=== PATIENT | female | born 1960 | race Caucasian/White ===

== ENCOUNTER 2017-03-01 08:27 | Emergency (ER) | payer OTHER ==
[~2017-03-01] VITALS: Ht 167.6 cm; Wt 68.0 kg
[~2017-03-01 08:27] MED LIST: CITA-77; CLON1TAB72 OR; GABA-494 OR
[2017-03-01] MEDS ORDERED: SODIUM CHLORIDE 0.9% 1,000 ML IV ONE (08:56)
[2017-03-01] MEDS ORDERED: ASPirin 81 mg TAB PO ONE (09:00)
[2017-03-01] MEDS ORDERED: NITROGLYCERIN 0.4 MG SL TAB SL ONE (09:00)
[2017-03-01] MEDS ORDERED: ONDANSETRON HCL 4 MG/2 ML VIAL IV ONE (09:00)
[2017-03-01] MEDS ORDERED: NALBUPHINE HCL 10 MG/1ml INJECTION IV ONE (09:00)
[2017-03-01 09:16] LABS: Basophils # (auto) 0.1 uL; Basophils % (auto) 0.7 % (0.0-2.0); Eosinophils # (auto) 0 uL; Eosinophils % (auto) 0.2 % (0.0-7.0); Hematocrit 33.8 % (36.0-46.0); Hemoglobin 11.5 g/dL (12.2-16.2); Lymphocytes % (auto) 8.4 % (10.0-50.0); Mean Corpuscular Hemoglobin 32.3 pg (28.0-32.0); Mean Corpuscular Volume 95.2 fL (80.0-100.0); Mean Platelet Volume 8.6 fL (7.4-10.4); Monocytes # (auto) 0.7 uL; Monocytes % (auto) 6.1 % (0.0-12.0); Neutrophils # (auto) 9.7 uL; Neutrophils % (auto) 84.6 % (37.0-80.0); Platelet Count (auto) 189 10^3/uL (140-450); Red Cell Distribution Width 12.8 % (11.6-16.0); White Blood Cell 11.4 10^3/uL (4.4-10.8)
[2017-03-01 09:29] LABS: Albumin 3.3 g/dL (3.4-5.0); Alkaline Phosphatase 90 U/L (45-117); Anion Gap 11 (5-15); Aspartate Aminotransferase 28 U/L (15-37); BUN/Creatinine Ratio 8.6; Bilirubin, Total 0.5 mg/dL (0.2-1.0); Blood Urea Nitrogen 6 mg/dL (7-18); Calcium 8.2 mg/dL (8.5-10.1); Carbon Dioxide 25 mmol/L (21-32); Chloride 101 mmol/L (98-107); GFR African American 111 mL/min; GFR Non-African American 92 mL/min; Glucose 105 mg/dL (74-106); Magnesium 2.1 mg/dL (1.6-2.6); Sodium 137 mmol/L (136-145)
[2017-03-01] MEDS ORDERED: cefTRIAXone 1GM/50ML D5W 50 ML IV ONE (10:45)
[2017-03-01] MEDS ORDERED: POTASSIUM CHL 10% (20 MEQ/15ML) ORAL SOLN PO ONE (10:45)
[2017-03-01 11:12] LABS: Urine Bilirubin Negative (Negative); Urine Color Yellow (Yellow); Urine Glucose Normal (Normal); Urine Ketone Negative (Negative); Urine Nitrite Negative (Negative); Urine RBC 1 /hpf (0 - 4); Urine Squamous Epithelial Cell FEW /hpf (<5); Urine Urobilinogen Normal (Negative); Urine pH 5.5 (5.0-8.0)
[2017-03-01 11:16] LABS: Urine Blood 1+ /uL (Negative)
[2017-03-01 11:39] LABS: B-Type Natriuretic Peptide 74.68 pg/mL (0-100)
[2017-03-01 12:38] LABS: Temperature: 23.1 C (20.0-25.0)
[2017-03-01 14:01] VITALS: BP 126/78
== END 2017-03-01 14:11 | disposition short-term general hospital (02) ==
LOC: EDUNIT# 08:27 → ER 08:27 → EDAGE 08:27 → ER 14:11
CPT/HCPCS: 36415 ×2; 71020 ×2; 80053 ×2; 81001 ×2; 83735 ×2; 83880 ×2; 84484 ×2; 85025 ×2; 96361 ×2; 96365 ×2; 96375 ×2; 99285; J0696 ×2; J2300; J2405 ×2; J7030

== ENCOUNTER 2020-12-08 14:55 | Inpatient (IN) | payer OTHER ==
[~2020-12-08] VITALS: Ht 152.4 cm; Wt 68.7 kg
[~2020-12-08 14:55] MED LIST changes: -GABA-494 OR; +GABA100C9 OR
[2020-12-08] MEDS ORDERED: LORazepam 2MG/ML-1ML VIAL ONE (15:32)
[2020-12-08] MEDS ORDERED: LORazepam 2MG/ML-1ML VIAL IV ONE (15:45)
[2020-12-08 16:28] LABS: Hematocrit 36.5 % (36.0-46.0); Hemoglobin 12.7 g/dL (12.2-16.2); Mean Corpuscular Hemoglobin 32.8 pg (28.0-32.0); Mean Corpuscular Hgb Conc. 34.8 g/dL (32.0-36.0); Mean Corpuscular Volume 94.1 fL (80.0-100.0); Platelet Count (auto) 273 10^3/uL (140-450); Red Blood Cells 3.88 10^6/uL (4.0-5.20); White Blood Cell 26.5 10^3/uL (4.4-10.8)
[2020-12-08 16:47] LABS: Albumin 3.3 g/dL (3.4-5.0); Anion Gap 13 (5-15); Blood Urea Nitrogen 17 mg/dL (7-18); Calcium 8.8 mg/dL (8.5-10.1); Carbon Dioxide 22 mmol/L (21-32); Chloride 102 mmol/L (98-107); Glucose 282 mg/dL (74-106); Sodium 137 mmol/L (136-145)
[2020-12-08 16:50] LABS: Alanine Aminotransferase 54 U/L (13-56); Alkaline Phosphatase 120 U/L (45-117); Aspartate Aminotransferase 111 U/L (15-37); Bilirubin, Total 0.9 mg/dL (0.2-1.0); GFR African American 68 mL/min; GFR Non-African American 56 mL/min; Total Protein 8.1 g/dL (6.4-8.2)
[2020-12-08 16:53] LABS: Basophils % (manual) 0 (0.0-2.0); Blast Cells 0; Eosinophils % (manual) 0 (0-7); Metamyelocytes % 0; Myelocytes % 0; Promyelocytes % 0; Reactive Lymphocytes 0
[2020-12-08 17:49] LABS: Potassium 2.5 mmol/L (3.5-5.1)
[2020-12-08 17:56] LABS: Band Neutrophils % (manual) 3; Lymphocytes % (manual) 1 (10.0-50.0); Monocytes % (manual) 9 (0-12)
[2020-12-08] MEDS ORDERED: ONDANSETRON HCL 4 MG/2 ML VIAL IV ONE (18:15)
[2020-12-08] MEDS ORDERED: SODIUM CHLORIDE 0.9% 500 ML IV ONE ×2 (18:15→22:30)
[2020-12-08] MEDS ORDERED: POTASSIUM CHL 20 Meq TABLET PO ONE (18:15)
[2020-12-08] MEDS: POTASSIUM CHL 20MEQ/100ML 100 ML IV SCH ×2 (19:02→21:20)
[2020-12-08] MEDS ORDERED: VANCOMYCIN 1GM/250ML 250 ML IV ONE (19:30)
[2020-12-08] MEDS ORDERED: CEFEPIME 2 GM in SODIUM CHL 0.9% 50 ML IV ONE (19:30)
[2020-12-08 19:53] LABS: Lactic Acid w/Reflex 2.5 mmol/L (0.4-2.0)
[2020-12-08] MEDS ORDERED: PIPERACILLIN-TAZOB 3.375GM 100 ML IV ONE (21:15)
[2020-12-08] MEDS ORDERED: NITROGLYCERIN 0.4 MG SL TAB SL PRN (21:45)
[2020-12-08] MEDS ORDERED: ACETAMINOPHEN 325 MG TAB PO PRN (21:45)
[2020-12-08] MEDS ORDERED: MORPHINE SULF INJ 2 MG/ML SYRINGE 1ML IV PRN (21:45)
[2020-12-08] MEDS ORDERED: FAMOTIDINE 20 MG TAB PO SCH (22:00)
[2020-12-08] MEDS: ONDANSETRON HCL 4 MG/2 ML VIAL IV PRN (22:06)
[2020-12-08] MEDS: SODIUM CHLORIDE 0.9% 1,000 ML IV SCH (22:06)
[2020-12-09] VITALS (57 sets, daily range): BP systolic 73–114; BP diastolic 44–71
[2020-12-09] MEDS: ONDANSETRON HCL 4 MG/2 ML VIAL IV PRN (02:49)
[2020-12-09] MEDS ORDERED: LORazepam 2MG/ML-1ML VIAL IV ONE (03:45)
[2020-12-09] MEDS ORDERED: MIDAZOLAM DRIP 50 mg/50mL 50 ML IV SCH (04:30)
[2020-12-09] MEDS ORDERED: MIDAZOLAM DRIP 50 mg/50mL 50 ML IV ONE (04:35)
[2020-12-09] MEDS: fentaNYL Drip 2500mCg/250mlNS 250 ML IV SCH ×2 (04:55→05:58)
[2020-12-09] MEDS ORDERED: fentaNYL Drip 2500mCg/250mlNS 250 ML IV ONE (04:56)
[2020-12-09 05:18] LABS: Urine Amorphous Crystal FEW /hpf (None Seen); Urine Bacteria FEW /hpf (None Seen); Urine Blood 2+ /uL (Negative); Urine Hyaline Cast FEW /lpf (0 - 2); Urine Mucus FEW (None Seen); Urine WBC 6 /hpf (0 - 5)
[2020-12-09] MEDS ORDERED: NOREPINEPHRINE 8 MG/250ML KIT 250 ML IV ONE (06:58)
[2020-12-09] MEDS ORDERED: NOREPINEPHRINE 8 MG/250ML KIT 250 ML IV SCH (07:00)
[2020-12-09 07:51] LABS: Basophils # (auto) 0.1 10 ^3/uL (0-0.2); Basophils % (auto) 0.2 % (0.0-2.0); Eosinophils # (auto) 0 10 ^3/uL (0-0.8); Hemoglobin 11.7 g/dL (12.2-16.2); Lymphocytes # (auto) 1.4 10 ^3/uL (0.4-5.4); Lymphocytes % (auto) 5.6 % (10.0-50.0); Mean Corpuscular Hemoglobin 33.5 pg (28.0-32.0); Mean Corpuscular Hgb Conc. 35.3 g/dL (32.0-36.0); Mean Corpuscular Volume 94.7 fL (80.0-100.0); Monocytes # (auto) 1.1 10 ^3/uL (0-1.3); Monocytes % (auto) 4.4 % (0.0-12.0); Neutrophils # (auto) 22.5 10 ^3/uL (1.6-8.6); Neutrophils % (auto) 89.8 % (37.0-80.0); Platelet Count (auto) 220 10^3/uL (140-450); Red Blood Cells 3.49 10^6/uL (4.0-5.20); Red Cell Distribution Width 13.1 % (11.8-14.3); White Blood Cell 25.1 10^3/uL (4.4-10.8)
[2020-12-09 08:12] LABS: Albumin 2.6 g/dL (3.4-5.0); Calcium 7.6 mg/dL (8.5-10.1)
[2020-12-09 08:16] LABS: Bilirubin, Total 0.6 mg/dL (0.2-1.0); Total Protein 6.6 g/dL (6.4-8.2)
[2020-12-09 08:21] LABS: Potassium 2.9 mmol/L (3.5-5.1)
[2020-12-09] MEDS: NOREPINEPHRINE 8 MG/250ML KIT 250 ML IV SCH ×2 (08:36→10:00)
[2020-12-09] MEDS: PROPOFOL 100 ML IV SCH (08:50)
[2020-12-09] MEDS ORDERED: POTASSIUM CHL 20MEQ/100ML 100 ML IV ONE (09:00)
[2020-12-09] MEDS ORDERED: ACETAMINOPHEN 650 MG RECT SUPP PR PRN (09:00)
[2020-12-09] MEDS ORDERED: cefTRIAXone 1GM/50ML D5W 50 ML IV SCH (09:00)
[2020-12-09] MEDS ORDERED: ENOXAPARIN SOD 40 MG/0.4 ML SYRINGE SC SCH (10:00)
[2020-12-09] MEDS: AZITHROMYCIN 500MG/ 250ML 250 ML IV SCH (10:00)
[2020-12-09] MEDS ORDERED: AMIODARONE HCL 150 MG in D5W 5% 100 ML IV ONE (10:30)
[2020-12-09] MEDS ORDERED: AMIODARONE 450mg/250ml AE 250 ML IV SCH (10:45)
[2020-12-09] MEDS: MIDAZOLAM DRIP 50 mg/50mL 50 ML IV SCH ×2 (11:00→22:00)
[2020-12-09 11:34] LABS: Amphetamine Screen, Urine NEGATIVE (NEGATIVE); Barbiturate Scree,Urine NEGATIVE (NEGATIVE); Benzodiazephine Screen, Urine NEGATIVE (NEGATIVE); Cannabinoid Screen, Urine POSITIVE (NEGATIVE); Cocaine Screen, Urine NEGATIVE (NEGATIVE); Opiate Scree,Urine NEGATIVE (NEGATIVE); Phencyclidine Screen, Urine NEGATIVE (NEGATIVE)
[2020-12-09] MEDS: POTASSIUM CHL 20MEQ/100ML 100 ML IV SCH ×2 (11:49→12:47)
[2020-12-09] MEDS: SODIUM CHLORIDE 0.9% 1,000 ML IV SCH (11:51)
[2020-12-09 12:06] LABS: BUN/Creatinine Ratio 22.1
[2020-12-09] MEDS ORDERED: ATROPINE SULF 1 MG/10ml SYR IV ONE (13:44)
[2020-12-09] MEDS ORDERED: EPINEPHrine HCL 1 MG/10 ML SYRG IV ONE (13:44)
[2020-12-09] MEDS ORDERED: VANCOMYCIN PER PHARMACY 0 MG IV SCH (16:30)
[2020-12-09] MEDS: AMIODARONE 450mg/250ml AE 250 ML IV SCH (18:00)
[2020-12-09] MEDS: FUROSEMIDE 20 MG/2 ML VIAL IV SCH (18:07)
[2020-12-09] MEDS: PIPERACILLIN-TAZOB 3.375GM 100 ML IV SCH (18:07)
[2020-12-09] MEDS: ACETAMINOPHEN 650 mg PER 20.3 mL UD GT PRN (20:20)
[2020-12-09] MEDS: VANCOMYCIN 1GM/250ML 250 ML IV SCH (21:21)
[2020-12-09] MEDS ORDERED: FAMOTIDINE (10MG/ML) 2ML VL IV SCH (22:00)
[2020-12-09] MEDS: MAGNESIUM OXIDE 400 MG TAB GT SCH (22:45)
[2020-12-09] MEDS: ENOXAPARIN SOD 60 MG/0.6 ML SYRINGE SC SCH (22:45)
[2020-12-10] VITALS (100 sets, daily range): BP systolic 65–123; BP diastolic 35–99
[2020-12-10] MEDS: PIPERACILLIN-TAZOB 3.375GM 100 ML IV SCH ×4 (00:09→17:51)
[2020-12-10] MEDS: NOREPINEPHRINE 8 MG/250ML KIT 250 ML IV SCH ×5 (02:00→23:31)
[2020-12-10] MEDS: MIDAZOLAM DRIP 50 mg/50mL 50 ML IV SCH ×2 (03:00→15:13)
[2020-12-10] MEDS: PROPOFOL 100 ML IV SCH ×2 (04:30→12:41)
[2020-12-10 04:48] LABS: Basophils # (auto) 0.1 10 ^3/uL (0-0.2); Basophils % (auto) 0.4 % (0.0-2.0); Eosinophils # (auto) 0.2 10 ^3/uL (0-0.8); Eosinophils % (auto) 1.1 % (0.0-7.0); Hematocrit 31.9 % (36.0-46.0); Hemoglobin 10.8 g/dL (12.2-16.2); Lymphocytes # (auto) 2.6 10 ^3/uL (0.4-5.4); Lymphocytes % (auto) 11.3 % (10.0-50.0); Mean Corpuscular Hemoglobin 32.9 pg (28.0-32.0); Mean Corpuscular Hgb Conc. 33.8 g/dL (32.0-36.0); Mean Corpuscular Volume 97.3 fL (80.0-100.0); Monocytes # (auto) 1.2 10 ^3/uL (0-1.3); Monocytes % (auto) 5.2 % (0.0-12.0); Neutrophils # (auto) 18.9 10 ^3/uL (1.6-8.6); Platelet Count (auto) 170 10^3/uL (140-450); Red Blood Cells 3.28 10^6/uL (4.0-5.20); Red Cell Distribution Width 13.6 % (11.8-14.3)
[2020-12-10 05:42] LABS: Albumin 2.3 g/dL (3.4-5.0); Calcium 7.4 mg/dL (8.5-10.1); Potassium 3.9 mmol/L (3.5-5.1)
[2020-12-10 05:48] LABS: BUN/Creatinine Ratio 16.2; Bilirubin, Total 0.4 mg/dL (0.2-1.0); Total Protein 6.3 g/dL (6.4-8.2)
[2020-12-10] MEDS: fentaNYL Drip 2500mCg/250mlNS 250 ML IV SCH ×2 (05:57→18:45)
[2020-12-10] MEDS: FUROSEMIDE 20 MG/2 ML VIAL IV SCH ×2 (06:00→17:51)
[2020-12-10] MEDS: AMIODARONE 450mg/250ml AE 250 ML IV SCH (09:53)
[2020-12-10] MEDS: PANTOPRAZOLE 40 MG/10 ML VIAL INJ IV SCH (09:53)
[2020-12-10] MEDS: ENOXAPARIN SOD 60 MG/0.6 ML SYRINGE SC SCH ×2 (09:55→22:12)
[2020-12-10] MEDS: AZITHROMYCIN 500MG/ 250ML 250 ML IV SCH (09:55)
[2020-12-10] MEDS: MAGNESIUM OXIDE 400 MG TAB GT SCH ×2 (09:56→22:11)
[2020-12-10] MEDS: VANCOMYCIN 1GM/250ML 250 ML IV SCH (12:39)
[2020-12-11] VITALS (97 sets, daily range): BP systolic 60–141; BP diastolic 22–86
[2020-12-11] MEDS: PIPERACILLIN-TAZOB 3.375GM 100 ML IV SCH ×5 (00:07→23:56)
[2020-12-11] MEDS: AMIODARONE 450mg/250ml AE 250 ML IV SCH ×2 (02:00→13:45)
[2020-12-11] MEDS ORDERED: DOPamine 1600MCG/ML D5W 250 ML IV ONE (04:24)
[2020-12-11] MEDS: NOREPINEPHRINE 8 MG/250ML KIT 250 ML IV SCH ×3 (05:00→18:03)
[2020-12-11 05:25] LABS: Basophils # (auto) 0 10 ^3/uL (0-0.2); Basophils % (auto) 0.2 % (0.0-2.0); Eosinophils # (auto) 0.2 10 ^3/uL (0-0.8); Eosinophils % (auto) 1.1 % (0.0-7.0); Hematocrit 30.4 % (36.0-46.0); Hemoglobin 10.5 g/dL (12.2-16.2); Lymphocytes # (auto) 1.5 10 ^3/uL (0.4-5.4); Lymphocytes % (auto) 8.2 % (10.0-50.0); Mean Corpuscular Hemoglobin 33.3 pg (28.0-32.0); Mean Corpuscular Hgb Conc. 34.6 g/dL (32.0-36.0); Mean Corpuscular Volume 96.3 fL (80.0-100.0); Monocytes # (auto) 1.1 10 ^3/uL (0-1.3); Monocytes % (auto) 5.9 % (0.0-12.0); Neutrophils # (auto) 15.3 10 ^3/uL (1.6-8.6); Neutrophils % (auto) 84.6 % (37.0-80.0); Platelet Count (auto) 168 10^3/uL (140-450); Red Blood Cells 3.16 10^6/uL (4.0-5.20); Red Cell Distribution Width 13.3 % (11.8-14.3); White Blood Cell 18.1 10^3/uL (4.4-10.8)
[2020-12-11] MEDS: VANCOMYCIN 1GM/250ML 250 ML IV SCH ×2 (05:34→21:17)
[2020-12-11 05:45] LABS: INR 1.13 (0.9-1.15); Partial Thromboplastin Time 44.3 sec (23.0-31.2)
[2020-12-11 06:34] LABS: BUN/Creatinine Ratio 11.4; Calcium 7.8 mg/dL (8.5-10.1); Potassium 3.4 mmol/L (3.5-5.1)
[2020-12-11] MEDS: FUROSEMIDE 20 MG/2 ML VIAL IV SCH ×2 (06:44→18:05)
[2020-12-11] MEDS ORDERED: POTASSIUM CHL 20MEQ/100ML 100 ML IV ONE (07:15)
[2020-12-11] MEDS: fentaNYL Drip 2500mCg/250mlNS 250 ML IV SCH (09:20)
[2020-12-11] MEDS ORDERED: LIDOCAINE 2%HCL (LOCAL ANESTH.) INJ 20ML MDV ONE (09:52)
[2020-12-11] MEDS ORDERED: IODIXANOL 320MG/ML 100ML BTL IV ONE (09:52)
[2020-12-11] MEDS: AZITHROMYCIN 500MG/ 250ML 250 ML IV SCH (09:54)
[2020-12-11] MEDS: PANTOPRAZOLE 40 MG/10 ML VIAL INJ IV SCH (09:54)
[2020-12-11] MEDS: ENOXAPARIN SOD 60 MG/0.6 ML SYRINGE SC SCH ×2 (09:55→21:57)
[2020-12-11] MEDS: MAGNESIUM OXIDE 400 MG TAB GT SCH ×2 (10:00→21:38)
[2020-12-11] MEDS ORDERED: SODIUM CHL 0.9% 0 ML ONE (10:24)
[2020-12-11] MEDS ORDERED: ANGIOMAX 250 MG VIAL IV ONE (10:24)
[2020-12-11] MEDS ORDERED: HEPARIN SODIUM (PORCINE) 5000 UNITS/ML 1ML VIAL ONE (10:33)
[2020-12-11] MEDS ORDERED: VERAPAMIL 2.5MG/ML INJ 2ML VIAL IV ONE (10:33)
[2020-12-11] MEDS ORDERED: Jevity 1.2 Cal/Fiber 1 Liter GT SCH (14:00)
[2020-12-11] MEDS ORDERED: AMIODARONE HCL 200 MG TAB PO SCH (22:00)
[2020-12-12] VITALS (100 sets, daily range): BP systolic 76–163; BP diastolic 42–124
[2020-12-12] MEDS: NOREPINEPHRINE 8 MG/250ML KIT 250 ML IV SCH ×2 (00:46→22:09)
[2020-12-12 06:01] LABS: Basophils # (auto) 0 10 ^3/uL (0-0.2); Basophils % (auto) 0.2 % (0.0-2.0); Eosinophils # (auto) 0.4 10 ^3/uL (0-0.8); Eosinophils % (auto) 2.5 % (0.0-7.0); Hematocrit 30.9 % (36.0-46.0); Hemoglobin 10.8 g/dL (12.2-16.2); Lymphocytes # (auto) 1.3 10 ^3/uL (0.4-5.4); Lymphocytes % (auto) 8.5 % (10.0-50.0); Mean Corpuscular Hemoglobin 33.1 pg (28.0-32.0); Mean Corpuscular Hgb Conc. 34.9 g/dL (32.0-36.0); Mean Corpuscular Volume 94.8 fL (80.0-100.0); Monocytes # (auto) 0.9 10 ^3/uL (0-1.3); Monocytes % (auto) 5.9 % (0.0-12.0); Neutrophils # (auto) 12.7 10 ^3/uL (1.6-8.6); Neutrophils % (auto) 82.9 % (37.0-80.0); Platelet Count (auto) 176 10^3/uL (140-450); Red Blood Cells 3.25 10^6/uL (4.0-5.20); Red Cell Distribution Width 12.9 % (11.8-14.3); White Blood Cell 15.4 10^3/uL (4.4-10.8)
[2020-12-12] MEDS: PIPERACILLIN-TAZOB 3.375GM 100 ML IV SCH ×4 (06:17→23:46)
[2020-12-12] MEDS: FUROSEMIDE 20 MG/2 ML VIAL IV SCH ×2 (06:17→17:25)
[2020-12-12 06:30] LABS: BUN/Creatinine Ratio 10.3; Calcium 7.7 mg/dL (8.5-10.1); Magnesium 2.2 mg/dL (1.6-2.6)
[2020-12-12 06:32] LABS: Potassium 2.8 mmol/L (3.5-5.1)
[2020-12-12] MEDS ORDERED: POTASSIUM CHL 20MEQ/100ML 100 ML IV ONE ×3 (06:49→18:45)
[2020-12-12] MEDS ORDERED: EPINEPHrine HCL 250 ML IV ONE (06:51)
[2020-12-12] MEDS ORDERED: AMIODARONE 450mg/250ml AE 250 ML IV ONE ×2 (06:53→15:45)
[2020-12-12] MEDS: EPINEPHrine HCL 250 ML IV SCH (07:00)
[2020-12-12] MEDS ORDERED: SODIUM BICARBONATE 8.4 % INJ 50ML VIAL IV ONE (07:00)
[2020-12-12] MEDS ORDERED: AMIODARONE 450mg/250ml AE 250 ML IV SCH (07:15)
[2020-12-12] MEDS: fentaNYL Drip 2500mCg/250mlNS 250 ML IV SCH ×2 (07:22→22:08)
[2020-12-12] MEDS: POTASSIUM CHL 20MEQ/100ML 100 ML IV SCH ×4 (07:24→09:53)
[2020-12-12] MEDS: PROPOFOL 100 ML IV SCH (07:45)
[2020-12-12] MEDS: MIDAZOLAM DRIP 50 mg/50mL 50 ML IV SCH (09:00)
[2020-12-12] MEDS: ENOXAPARIN SOD 60 MG/0.6 ML SYRINGE SC SCH (09:53)
[2020-12-12] MEDS: MAGNESIUM OXIDE 400 MG TAB GT SCH ×2 (09:53→22:07)
[2020-12-12] MEDS: AZITHROMYCIN 500MG/ 250ML 250 ML IV SCH (09:53)
[2020-12-12] MEDS: PANTOPRAZOLE 40 MG/10 ML VIAL INJ IV SCH (09:54)
[2020-12-12] MEDS: VANCOMYCIN 1GM/250ML 250 ML IV SCH (13:00)
[2020-12-12] MEDS: AMIODARONE 450mg/250ml AE 250 ML IV SCH (15:49)
[2020-12-13] VITALS (95 sets, daily range): BP systolic 91–145; BP diastolic 52–85
[2020-12-13 04:37] LABS: Basophils # (auto) 0.1 10 ^3/uL (0-0.2); Basophils % (auto) 0.4 % (0.0-2.0); Eosinophils # (auto) 0.2 10 ^3/uL (0-0.8); Eosinophils % (auto) 1.6 % (0.0-7.0); Hematocrit 26.9 % (36.0-46.0); Hemoglobin 9.3 g/dL (12.2-16.2); Lymphocytes # (auto) 0.8 10 ^3/uL (0.4-5.4); Lymphocytes % (auto) 5.5 % (10.0-50.0); Mean Corpuscular Hemoglobin 33.2 pg (28.0-32.0); Mean Corpuscular Hgb Conc. 34.6 g/dL (32.0-36.0); Monocytes % (auto) 7.3 % (0.0-12.0); Neutrophils % (auto) 85.2 % (37.0-80.0); Platelet Count (auto) 164 10^3/uL (140-450); White Blood Cell 14.1 10^3/uL (4.4-10.8)
[2020-12-13] MEDS ORDERED: AMIODARONE 450mg/250ml AE 250 ML IV ONE ×3 (04:48→19:28)
[2020-12-13] MEDS: AMIODARONE 450mg/250ml AE 250 ML IV SCH ×3 (04:54→20:00)
[2020-12-13 04:55] LABS: BUN/Creatinine Ratio 11.8; INR 1.07 (0.9-1.15); Partial Thromboplastin Time 33.3 sec (23.0-31.2)
[2020-12-13 04:57] LABS: Potassium 2.5 mmol/L (3.5-5.1)
[2020-12-13] MEDS ORDERED: POTASSIUM CHL 20MEQ/100ML 200 ML IV ONE (04:58)
[2020-12-13] MEDS ORDERED: POTASSIUM CHL 20MEQ/100ML 100 ML IV SCH (05:15)
[2020-12-13] MEDS: VANCOMYCIN 1GM/250ML 250 ML IV SCH ×2 (05:22→21:00)
[2020-12-13] MEDS ORDERED: POTASSIUM CHL 20MEQ/100ML 100 ML IV ONE (05:30)
[2020-12-13] MEDS: FUROSEMIDE 20 MG/2 ML VIAL IV SCH ×2 (05:31→18:25)
[2020-12-13] MEDS: PIPERACILLIN-TAZOB 3.375GM 100 ML IV SCH ×3 (06:19→18:25)
[2020-12-13] MEDS: POTASSIUM CHL 20MEQ/100ML 100 ML IV SCH ×4 (06:22→09:46)
[2020-12-13] MEDS: EPINEPHrine HCL 250 ML IV SCH (06:45)
[2020-12-13] MEDS: PROPOFOL 100 ML IV SCH (07:23)
[2020-12-13] MEDS: MIDAZOLAM DRIP 50 mg/50mL 50 ML IV SCH (08:24)
[2020-12-13] MEDS: ENOXAPARIN SOD 40 MG/0.4 ML SYRINGE SC SCH (09:46)
[2020-12-13] MEDS: PANTOPRAZOLE 40 MG/10 ML VIAL INJ IV SCH (09:46)
[2020-12-13] MEDS: MAGNESIUM OXIDE 400 MG TAB GT SCH ×2 (09:46→22:00)
[2020-12-13] MEDS: AZITHROMYCIN 500MG/ 250ML 250 ML IV SCH (09:56)
[2020-12-13] MEDS ORDERED: POTASSIUM EFFERVESENT TAB 25 MEQ ONE (10:21)
[2020-12-13] MEDS ORDERED: POTASSIUM EFFERVESENT TAB 25 MEQ GT ONE (10:30)
[2020-12-13] MEDS ORDERED: LIDOCAINE 2%HCL (LOCAL ANESTH.) INJ 20ML MDV ONE ×2 (13:52→14:05)
[2020-12-13] MEDS ORDERED: VANCOMYCIN HCL 1000 MG VL ONE (13:53)
[2020-12-13] MEDS ORDERED: MIDAZOLAM HCL 1MG/1ML-2 ML VIAL ONE (14:05)
[2020-12-13] MEDS: NOREPINEPHRINE 8 MG/250ML KIT 250 ML IV SCH (20:00)
[2020-12-13] MEDS: POTASSIUM EFFERVESENT TAB 25 MEQ GT SCH (22:00)
[2020-12-14] VITALS (82 sets, daily range): BP systolic 92–141; BP diastolic 61–90
[2020-12-14] MEDS: PIPERACILLIN-TAZOB 3.375GM 100 ML IV SCH ×5 (00:17→23:45)
[2020-12-14 03:25] LABS: Basophils # (auto) 0.1 10 ^3/uL (0-0.2); Basophils % (auto) 0.4 % (0.0-2.0); Eosinophils # (auto) 0.3 10 ^3/uL (0-0.8); Eosinophils % (auto) 1.9 % (0.0-7.0); Hematocrit 31.1 % (36.0-46.0); Lymphocytes # (auto) 0.7 10 ^3/uL (0.4-5.4); Lymphocytes % (auto) 4.9 % (10.0-50.0); Mean Corpuscular Hemoglobin 33.4 pg (28.0-32.0); Mean Corpuscular Hgb Conc. 35.3 g/dL (32.0-36.0); Mean Corpuscular Volume 94.7 fL (80.0-100.0); Monocytes # (auto) 1.1 10 ^3/uL (0-1.3); Monocytes % (auto) 7.7 % (0.0-12.0); Neutrophils # (auto) 11.9 10 ^3/uL (1.6-8.6); Neutrophils % (auto) 85.1 % (37.0-80.0); Platelet Count (auto) 189 10^3/uL (140-450); Red Blood Cells 3.29 10^6/uL (4.0-5.20)
[2020-12-14 03:53] LABS: BUN/Creatinine Ratio 11.5; Calcium 8.3 mg/dL (8.5-10.1); Potassium 3.7 mmol/L (3.5-5.1)
[2020-12-14] MEDS ORDERED: AMIODARONE 450mg/250ml AE 250 ML IV ONE ×3 (04:18→22:09)
[2020-12-14] MEDS: AMIODARONE 450mg/250ml AE 250 ML IV SCH ×2 (04:31→22:16)
[2020-12-14] MEDS: fentaNYL Drip 2500mCg/250mlNS 250 ML IV SCH (04:32)
[2020-12-14] MEDS: FUROSEMIDE 20 MG/2 ML VIAL IV SCH ×2 (06:00→17:57)
[2020-12-14] MEDS: EPINEPHrine HCL 250 ML IV SCH (06:37)
[2020-12-14] MEDS: PROPOFOL 100 ML IV SCH (07:20)
[2020-12-14] MEDS: MIDAZOLAM DRIP 50 mg/50mL 50 ML IV SCH (08:31)
[2020-12-14] MEDS: ENOXAPARIN SOD 40 MG/0.4 ML SYRINGE SC SCH (10:00)
[2020-12-14] MEDS: MAGNESIUM OXIDE 400 MG TAB GT SCH ×2 (10:15→21:56)
[2020-12-14] MEDS: POTASSIUM EFFERVESENT TAB 25 MEQ GT SCH ×2 (10:15→21:55)
[2020-12-14] MEDS: PANTOPRAZOLE 40 MG/10 ML VIAL INJ IV SCH (10:16)
[2020-12-14] MEDS: AZITHROMYCIN 500MG/ 250ML 250 ML IV SCH (10:16)
[2020-12-14] MEDS: VANCOMYCIN 1GM/250ML 250 ML IV SCH (13:04)
[2020-12-14] MEDS ORDERED: LORazepam 2MG/ML-1ML VIAL IV PRN (21:00)
[2020-12-14] MEDS ORDERED: LORazepam 0.5 MG TAB PO PRN (21:00)
[2020-12-14] MEDS: LORazepam 2MG/ML-1ML VIAL IV PRN (22:56)
[2020-12-15] VITALS (94 sets, daily range): BP systolic 106–147; BP diastolic 64–100
[2020-12-15] MEDS ORDERED: AMIODARONE 450mg/250ml AE 250 ML IV ONE ×3 (04:57→20:52)
[2020-12-15] MEDS: fentaNYL Drip 2500mCg/250mlNS 250 ML IV SCH (05:00)
[2020-12-15] MEDS: VANCOMYCIN 1GM/250ML 250 ML IV SCH ×2 (05:00→16:27)
[2020-12-15] MEDS: FUROSEMIDE 20 MG/2 ML VIAL IV SCH ×2 (06:00→18:15)
[2020-12-15 06:05] LABS: Calcium 8.4 mg/dL (8.5-10.1); Potassium 3.9 mmol/L (3.5-5.1)
[2020-12-15] MEDS: PIPERACILLIN-TAZOB 3.375GM 100 ML IV SCH ×3 (06:06→18:15)
[2020-12-15 06:09] LABS: BUN/Creatinine Ratio 13.8; Bilirubin, Total 0.8 mg/dL (0.2-1.0); Total Protein 7.4 g/dL (6.4-8.2)
[2020-12-15] MEDS: AMIODARONE 450mg/250ml AE 250 ML IV SCH ×3 (06:09→21:00)
[2020-12-15] MEDS: EPINEPHrine HCL 250 ML IV SCH (06:44)
[2020-12-15] MEDS: NOREPINEPHRINE 8 MG/250ML KIT 250 ML IV SCH (07:45)
[2020-12-15] MEDS: PROPOFOL 100 ML IV SCH (07:45)
[2020-12-15] MEDS: POTASSIUM EFFERVESENT TAB 25 MEQ GT SCH ×2 (08:30→19:48)
[2020-12-15] MEDS: MAGNESIUM OXIDE 400 MG TAB GT SCH ×2 (08:31→19:48)
[2020-12-15] MEDS: MIDAZOLAM DRIP 50 mg/50mL 50 ML IV SCH (09:00)
[2020-12-15] MEDS: AZITHROMYCIN 500MG/ 250ML 250 ML IV SCH (10:29)
[2020-12-15] MEDS: PANTOPRAZOLE 40 MG/10 ML VIAL INJ IV SCH (10:29)
[2020-12-15] MEDS: ENOXAPARIN SOD 40 MG/0.4 ML SYRINGE SC SCH (10:29)
[2020-12-15] MEDS: POTASSIUM CHL 20MEQ/100ML 100 ML IV SCH ×2 (10:30→11:52)
[2020-12-15] MEDS: LORazepam 2MG/ML-1ML VIAL IV PRN (15:14)
[2020-12-16] VITALS (82 sets, daily range): BP systolic 93–143; BP diastolic 55–88
[2020-12-16] MEDS: LORazepam 2MG/ML-1ML VIAL IV PRN (01:13)
[2020-12-16] MEDS ORDERED: AMIODARONE 450mg/250ml AE 0 ML IV ONE (04:48)
[2020-12-16] MEDS: AMIODARONE 450mg/250ml AE 250 ML IV SCH ×2 (05:17→18:15)
[2020-12-16 05:41] LABS: Calcium 8.4 mg/dL (8.5-10.1)
[2020-12-16 05:44] LABS: BUN/Creatinine Ratio 14.1
[2020-12-16] MEDS: FUROSEMIDE 20 MG/2 ML VIAL IV SCH ×2 (06:29→17:01)
[2020-12-16] MEDS: PIPERACILLIN-TAZOB 3.375GM 100 ML IV SCH ×6 (06:29→21:44)
[2020-12-16] MEDS: PROPOFOL 100 ML IV SCH (07:45)
[2020-12-16] MEDS: NOREPINEPHRINE 8 MG/250ML KIT 250 ML IV SCH (07:45)
[2020-12-16] MEDS: fentaNYL Drip 2500mCg/250mlNS 250 ML IV SCH (07:58)
[2020-12-16] MEDS: EPINEPHrine HCL 250 ML IV SCH (07:58)
[2020-12-16] MEDS: MIDAZOLAM DRIP 50 mg/50mL 50 ML IV SCH (07:59)
[2020-12-16] MEDS: POTASSIUM EFFERVESENT TAB 25 MEQ GT SCH ×2 (09:26→22:00)
[2020-12-16] MEDS: MAGNESIUM OXIDE 400 MG TAB GT SCH ×2 (09:26→21:42)
[2020-12-16] MEDS: POTASSIUM CHL 20MEQ/100ML 100 ML IV SCH ×4 (09:30→15:44)
[2020-12-16] MEDS ORDERED: POTASSIUM CHL 20 Meq TABLET PO ONE (09:45)
[2020-12-16] MEDS: PANTOPRAZOLE 40 MG/10 ML VIAL INJ IV SCH (09:54)
[2020-12-16] MEDS: ENOXAPARIN SOD 40 MG/0.4 ML SYRINGE SC SCH (09:54)
[2020-12-16] MEDS: AZITHROMYCIN 500MG/ 250ML 250 ML IV SCH (09:54)
[2020-12-16] MEDS ORDERED: AMIODARONE 450mg/250ml AE 250 ML IV ONE ×2 (10:35→11:41)
[2020-12-16] MEDS: VANCOMYCIN 1GM/250ML 250 ML IV SCH (11:54)
[2020-12-16] MEDS ORDERED: AMIODARONE HCL 200 MG TAB PO ONE (13:15)
[2020-12-16] MEDS: IPRATROPIUM BROM 0.5 MG/2.5ML INH SOL NEB SCH ×3 (14:50→21:03)
[2020-12-16] MEDS: ALBUTEROL SULF 2.5 MG/0.5ML(0.5%) NEB SOLN NEB SCH ×3 (14:50→21:03)
[2020-12-16] MEDS ORDERED: AMIODARONE HCL 200 MG TAB PO SCH (22:00)
[2020-12-17] VITALS (64 sets, daily range): BP systolic 101–151; BP diastolic 56–97
[2020-12-17] MEDS: ALBUTEROL SULF 2.5 MG/0.5ML(0.5%) NEB SOLN NEB SCH ×6 (02:07→21:50)
[2020-12-17] MEDS: IPRATROPIUM BROM 0.5 MG/2.5ML INH SOL NEB SCH ×6 (02:08→21:50)
[2020-12-17] MEDS: FUROSEMIDE 20 MG/2 ML VIAL IV SCH ×2 (06:00→17:32)
[2020-12-17] MEDS: PIPERACILLIN-TAZOB 3.375GM 100 ML IV SCH ×2 (06:00→14:00)
[2020-12-17] MEDS: VANCOMYCIN 1GM/250ML 250 ML IV SCH (08:17)
[2020-12-17] MEDS: AMIODARONE 450mg/250ml AE 250 ML IV SCH (08:18)
[2020-12-17] MEDS: MAGNESIUM OXIDE 400 MG TAB GT SCH ×2 (09:39→21:30)
[2020-12-17] MEDS: POTASSIUM EFFERVESENT TAB 25 MEQ GT SCH ×2 (09:39→21:30)
[2020-12-17] MEDS: PANTOPRAZOLE 40 MG/10 ML VIAL INJ IV SCH (10:09)
[2020-12-17] MEDS: ENOXAPARIN SOD 40 MG/0.4 ML SYRINGE SC SCH (10:10)
[2020-12-17] MEDS: POTASSIUM CHL 20MEQ/100ML 100 ML IV SCH ×3 (11:39→16:42)
[2020-12-18] MEDS: AMIODARONE 450mg/250ml AE 250 ML IV SCH (02:34)
[2020-12-18] MEDS: ALBUTEROL SULF 2.5 MG/0.5ML(0.5%) NEB SOLN NEB SCH ×3 (02:42→22:24)
[2020-12-18] MEDS: IPRATROPIUM BROM 0.5 MG/2.5ML INH SOL NEB SCH ×3 (02:43→22:24)
[2020-12-18] MEDS: FUROSEMIDE 20 MG/2 ML VIAL IV SCH (05:27)
[2020-12-18 07:20] LABS: BUN/Creatinine Ratio 20.7; Calcium 8.9 mg/dL (8.5-10.1); Potassium 3.8 mmol/L (3.5-5.1)
[2020-12-18] MEDS ORDERED: AMIODARONE HCL 200 MG TAB PO ONE (12:30)
[2020-12-18] MEDS: MAGNESIUM OXIDE 400 MG TAB GT SCH ×2 (12:53→22:15)
[2020-12-18] MEDS: POTASSIUM EFFERVESENT TAB 25 MEQ GT SCH ×2 (12:53→22:15)
[2020-12-18] MEDS: ENOXAPARIN SOD 40 MG/0.4 ML SYRINGE SC SCH (12:54)
[2020-12-18] MEDS: PANTOPRAZOLE 40 MG/10 ML VIAL INJ IV SCH (12:54)
[2020-12-18 16:30] VITALS: BP 129/80
[2020-12-18 22:00] VITALS: BP 119/76
[2020-12-18] MEDS: AMIODARONE HCL 200 MG TAB PO SCH (22:15)
[2020-12-19] MEDS: IPRATROPIUM BROM 0.5 MG/2.5ML INH SOL NEB SCH ×6 (02:14→22:20)
[2020-12-19] MEDS: ALBUTEROL SULF 2.5 MG/0.5ML(0.5%) NEB SOLN NEB SCH ×6 (02:14→22:20)
[2020-12-19 05:00] VITALS: BP 131/81
[2020-12-19 09:00] VITALS: BP 135/85
[2020-12-19] MEDS ORDERED: FUROSEMIDE 20 MG/2 ML VIAL IV SCH (10:00)
[2020-12-19] MEDS: POTASSIUM EFFERVESENT TAB 25 MEQ GT SCH (11:00)
[2020-12-19] MEDS: PANTOPRAZOLE 40 MG/10 ML VIAL INJ IV SCH (11:15)
[2020-12-19] MEDS: MAGNESIUM OXIDE 400 MG TAB GT SCH ×2 (11:15→22:36)
[2020-12-19] MEDS: AMIODARONE HCL 200 MG TAB PO SCH ×2 (11:15→22:35)
[2020-12-19] MEDS: ENOXAPARIN SOD 40 MG/0.4 ML SYRINGE SC SCH (11:15)
[2020-12-19 12:21] LABS: Hematocrit 37.3 % (36.0-46.0); Mean Corpuscular Hemoglobin 32.2 pg (28.0-32.0); Mean Corpuscular Hgb Conc. 34.7 g/dL (32.0-36.0); Mean Corpuscular Volume 92.7 fL (80.0-100.0); Platelet Count (auto) 294 10^3/uL (140-450); Red Blood Cells 4.02 10^6/uL (4.0-5.20); Red Cell Distribution Width 13.2 % (11.8-14.3)
[2020-12-19 12:26] LABS: Calcium 8.6 mg/dL (8.5-10.1); Magnesium 2.8 mg/dL (1.6-2.6); Potassium 3.6 mmol/L (3.5-5.1)
[2020-12-19 12:43] VITALS: BP 127/84
[2020-12-19 12:44] LABS: Basophils % (manual) 0 (0.0-2.0); Blast Cells 0; Myelocytes % 0; Promyelocytes % 0; Reactive Lymphocytes 0; White Blood Cell 32.7 10^3/uL (4.4-10.8)
[2020-12-19 13:47] LABS: Band Neutrophils % (manual) 1; Eosinophils % (manual) 1 (0-7); Lymphocytes % (manual) 4 (10.0-50.0); Metamyelocytes % 1; Monocytes % (manual) 7 (0-12)
[2020-12-19] MEDS ORDERED: IOHEXOL 350 MG/ML 100ML IJ ONE (14:31)
[2020-12-19 16:43] VITALS: BP 123/84
[2020-12-19] MEDS ORDERED: SODIUM CHLORIDE 0.9% 1,000 ML IV ONE (19:00)
[2020-12-19 21:34] LABS: Urine Bacteria NONE SEEN /hpf (None Seen); Urine Blood TRACE /uL (Negative); Urine Specific Gravity 1.045 (1.001-1.035); Urine WBC 2 /hpf (0 - 5)
[2020-12-20] VITALS (37 sets, daily range): BP systolic 75–150; BP diastolic 50–87
[2020-12-20] MEDS: IPRATROPIUM BROM 0.5 MG/2.5ML INH SOL NEB SCH ×3 (02:13→10:35)
[2020-12-20] MEDS: ALBUTEROL SULF 2.5 MG/0.5ML(0.5%) NEB SOLN NEB SCH ×3 (02:13→10:35)
[2020-12-20 06:18] LABS: Red Cell Distribution Width 12.9 % (11.8-14.3)
[2020-12-20 06:22] LABS: Hematocrit 34.5 % (36.0-46.0); Hemoglobin 11.8 g/dL (12.2-16.2); Mean Corpuscular Hgb Conc. 34.3 g/dL (32.0-36.0); Mean Corpuscular Volume 93.2 fL (80.0-100.0); Platelet Count (auto) 223 10^3/uL (140-450)
[2020-12-20 06:28] LABS: Albumin 2.6 g/dL (3.4-5.0); Calcium 8.7 mg/dL (8.5-10.1); Magnesium 2.8 mg/dL (1.6-2.6); Potassium 3.8 mmol/L (3.5-5.1)
[2020-12-20 06:30] LABS: BUN/Creatinine Ratio 26.1
[2020-12-20 06:43] LABS: Bilirubin, Total 0.4 mg/dL (0.2-1.0); Total Protein 7.3 g/dL (6.4-8.2)
[2020-12-20 06:48] LABS: Band Neutrophils % (manual) 0; Basophils % (manual) 0 (0.0-2.0); Blast Cells 0; Eosinophils % (manual) 0 (0-7); Promyelocytes % 0; Reactive Lymphocytes 0; White Blood Cell 37.2 10^3/uL (4.4-10.8)
[2020-12-20] MEDS ORDERED: VANCOMYCIN PER PHARMACY 0 MG IV SCH (08:00)
[2020-12-20 08:10] LABS: Lymphocytes % (manual) 7 (10.0-50.0); Metamyelocytes % 1; Monocytes % (manual) 7 (0-12); Myelocytes % 1
[2020-12-20] MEDS: AMIODARONE HCL 200 MG TAB PO SCH ×2 (09:44→22:00)
[2020-12-20] MEDS: MAGNESIUM OXIDE 400 MG TAB GT SCH ×2 (09:44→22:00)
[2020-12-20] MEDS: PANTOPRAZOLE 40 MG/10 ML VIAL INJ IV SCH (09:44)
[2020-12-20] MEDS: AZITHROMYCIN 500MG/ 250ML 250 ML IV SCH (09:44)
[2020-12-20] MEDS: ENOXAPARIN SOD 40 MG/0.4 ML SYRINGE SC SCH ×2 (09:45→22:00)
[2020-12-20] MEDS ORDERED: ETOMIDATE (2MG/ML) 20ML VIAL IV ONE (11:24)
[2020-12-20] MEDS ORDERED: SUCCINYLCHOLINE CHLORIDE 20 MG/ML 10ML VIAL IV ONE (11:24)
[2020-12-20] MEDS ORDERED: ROCURONIUM 10MG/ML 10ML VIAL IV ONE (11:25)
[2020-12-20] MEDS ORDERED: PROPOFOL 100 ML IV ONE (11:40)
[2020-12-20] MEDS ORDERED: MIDAZOLAM DRIP 50 mg/50mL 50 ML IV ONE (11:42)
[2020-12-20] MEDS: MIDAZOLAM DRIP 50 mg/50mL 50 ML IV SCH ×2 (12:00→21:00)
[2020-12-20] MEDS ORDERED: NOREPINEPHRINE 8 MG/250ML KIT 250 ML IV ONE (12:24)
[2020-12-20] MEDS ORDERED: fentaNYL Drip 2500mCg/250mlNS 250 ML IV ONE (12:41)
[2020-12-20] MEDS: PROPOFOL 100 ML IV SCH (12:45)
[2020-12-20] MEDS: fentaNYL Drip 2500mCg/250mlNS 250 ML IV SCH (13:00)
[2020-12-20] MEDS: VANCOMYCIN 1GM/250ML 250 ML IV SCH (14:19)
[2020-12-20] MEDS: NOREPINEPHRINE 8 MG/250ML KIT 250 ML IV SCH (16:04)
[2020-12-20] MEDS: PIPERACILLIN-TAZOB 3.375GM 100 ML IV SCH (17:26)
[2020-12-21] VITALS (84 sets, daily range): BP systolic 74–120; BP diastolic 45–75
[2020-12-21 05:45] LABS: Hematocrit 32.4 % (36.0-46.0); Hemoglobin 10.9 g/dL (12.2-16.2); Mean Corpuscular Hemoglobin 32.1 pg (28.0-32.0); Mean Corpuscular Hgb Conc. 33.5 g/dL (32.0-36.0); Mean Corpuscular Volume 95.9 fL (80.0-100.0); Platelet Count (auto) 202 10^3/uL (140-450); Red Blood Cells 3.38 10^6/uL (4.0-5.20)
[2020-12-21 05:54] LABS: Basophils % (manual) 0 (0.0-2.0); Blast Cells 0; Eosinophils % (manual) 0 (0-7); Metamyelocytes % 0; Promyelocytes % 0; Reactive Lymphocytes 0
[2020-12-21 05:57] LABS: Albumin 2.3 g/dL (3.4-5.0); Calcium 7.7 mg/dL (8.5-10.1); Potassium 3.7 mmol/L (3.5-5.1)
[2020-12-21] MEDS: PIPERACILLIN-TAZOB 3.375GM 100 ML IV SCH ×4 (06:00→17:39)
[2020-12-21 06:07] LABS: BUN/Creatinine Ratio 19.4; Bilirubin, Total 0.4 mg/dL (0.2-1.0); CRP High Sensitivity 6.14 mg/dL (< 0.3)
[2020-12-21 06:41] LABS: Band Neutrophils % (manual) 4; Lymphocytes % (manual) 9 (10.0-50.0); Monocytes % (manual) 8 (0-12); Myelocytes % 1
[2020-12-21] MEDS: ALBUTEROL SULF 2.5 MG/0.5ML(0.5%) NEB SOLN NEB SCH ×5 (07:05→22:09)
[2020-12-21] MEDS: IPRATROPIUM BROM 0.5 MG/2.5ML INH SOL NEB SCH ×5 (07:05→22:09)
[2020-12-21] MEDS: VANCOMYCIN 1GM/250ML 250 ML IV SCH (09:21)
[2020-12-21] MEDS: PANTOPRAZOLE 40 MG/10 ML VIAL INJ IV SCH (11:09)
[2020-12-21] MEDS: MAGNESIUM OXIDE 400 MG TAB GT SCH ×2 (11:09→21:40)
[2020-12-21] MEDS: AMIODARONE HCL 200 MG TAB PO SCH ×2 (11:09→21:45)
[2020-12-21] MEDS: ENOXAPARIN SOD 40 MG/0.4 ML SYRINGE SC SCH ×2 (11:09→21:45)
[2020-12-21] MEDS: fentaNYL Drip 2500mCg/250mlNS 250 ML IV SCH (11:13)
[2020-12-21] MEDS: PROPOFOL 100 ML IV SCH ×3 (11:14→19:45)
[2020-12-21] MEDS: MIDAZOLAM DRIP 50 mg/50mL 50 ML IV SCH ×3 (11:14→19:45)
[2020-12-21] MEDS ORDERED: SODIUM BICARBONATE 8.4 % INJ 50ML VIAL IV ONE (13:00)
[2020-12-21] MEDS: PHENYLEPHRINE IV 250 ML IV SCH (13:15)
[2020-12-21] MEDS: NOREPINEPHRINE 8 MG/250ML KIT 250 ML IV SCH (13:15)
[2020-12-21] MEDS: DOPamine 1600MCG/ML D5W 250 ML IV SCH (13:30)
[2020-12-21] MEDS: SODIUM CHLORIDE 0.9% 1,000 ML IV SCH (16:28)
[2020-12-21] MEDS: AZITHROMYCIN 500MG/ 250ML 250 ML IV SCH (17:38)
[2020-12-21] MEDS ORDERED: LINEZOLID 600MG/300ML 300 ML IV SCH (22:00)
[2020-12-22] VITALS (85 sets, daily range): BP systolic 87–140; BP diastolic 48–76
[2020-12-22] MEDS: fentaNYL Drip 2500mCg/250mlNS 250 ML IV SCH ×2 (00:05→12:04)
[2020-12-22] MEDS: PIPERACILLIN-TAZOB 3.375GM 100 ML IV SCH (00:30)
[2020-12-22] MEDS: PROPOFOL 100 ML IV SCH ×5 (01:10→21:43)
[2020-12-22] MEDS: MIDAZOLAM DRIP 50 mg/50mL 50 ML IV SCH ×4 (02:09→21:42)
[2020-12-22] MEDS: IPRATROPIUM BROM 0.5 MG/2.5ML INH SOL NEB SCH ×6 (02:12→21:47)
[2020-12-22] MEDS: ALBUTEROL SULF 2.5 MG/0.5ML(0.5%) NEB SOLN NEB SCH ×6 (02:12→21:47)
[2020-12-22] MEDS: SODIUM CHLORIDE 0.9% 1,000 ML IV SCH ×2 (03:50→18:31)
[2020-12-22 04:58] LABS: Hemoglobin 9.6 g/dL (12.2-16.2); Mean Corpuscular Hemoglobin 32.6 pg (28.0-32.0)
[2020-12-22 05:00] LABS: Hematocrit 27.8 % (36.0-46.0); Mean Corpuscular Hgb Conc. 34.4 g/dL (32.0-36.0); Mean Corpuscular Volume 94.8 fL (80.0-100.0); Platelet Count (auto) 131 10^3/uL (140-450); Red Blood Cells 2.93 10^6/uL (4.0-5.20); Red Cell Distribution Width 12.8 % (11.8-14.3)
[2020-12-22 05:09] LABS: Basophils % (manual) 0 (0.0-2.0); Blast Cells 0; Metamyelocytes % 0; Myelocytes % 0; Promyelocytes % 0; Reactive Lymphocytes 0
[2020-12-22 05:10] LABS: Calcium 7.3 mg/dL (8.5-10.1); Potassium 4.1 mmol/L (3.5-5.1)
[2020-12-22 05:14] LABS: BUN/Creatinine Ratio 17.8
[2020-12-22 05:55] LABS: Band Neutrophils % (manual) 1; Eosinophils % (manual) 4 (0-7); Lymphocytes % (manual) 4 (10.0-50.0); Monocytes % (manual) 4 (0-12)
[2020-12-22] MEDS: NOREPINEPHRINE BITARTRATE 16 MG in SODIUM CHL 0.9% 234 ML IV SCH ×4 (08:00→22:00)
[2020-12-22] MEDS: AMIODARONE HCL 200 MG TAB PO SCH ×2 (10:04→21:29)
[2020-12-22] MEDS: MAGNESIUM OXIDE 400 MG TAB GT SCH ×2 (10:04→21:29)
[2020-12-22] MEDS: ENOXAPARIN SOD 40 MG/0.4 ML SYRINGE SC SCH ×2 (10:04→21:29)
[2020-12-22] MEDS: PANTOPRAZOLE 40 MG/10 ML VIAL INJ IV SCH (10:04)
[2020-12-22] MEDS: PHENYLEPHRINE IV 250 ML IV SCH ×3 (11:00→14:55)
[2020-12-22] MEDS: DOPamine 1600MCG/ML D5W 250 ML IV SCH (11:35)
[2020-12-22 14:51] LABS: Urine Amorphous Crystal MOD /hpf (None Seen); Urine Bacteria NONE SEEN /hpf (None Seen); Urine Blood 2+ /uL (Negative); Urine Specific Gravity 1.013 (1.001-1.035); Urine WBC 9 /hpf (0 - 5)
[2020-12-22 15:29] LABS: Creatinine, Urine 44 mg/dL (30.0-125.0); Sodium Urine 21 mmol/L (40-220)
[2020-12-23] VITALS (55 sets, daily range): BP systolic 67–123; BP diastolic 37–75
[2020-12-23] MEDS: fentaNYL Drip 2500mCg/250mlNS 250 ML IV SCH ×2 (00:33→13:03)
[2020-12-23] MEDS: ALBUTEROL SULF 2.5 MG/0.5ML(0.5%) NEB SOLN NEB SCH ×5 (02:07→23:31)
[2020-12-23] MEDS: IPRATROPIUM BROM 0.5 MG/2.5ML INH SOL NEB SCH ×5 (02:07→23:31)
[2020-12-23] MEDS ORDERED: NOREPINEPHRINE BITARTRATE 2 ML IV ONE (03:28)
[2020-12-23] MEDS ORDERED: NOREPINEPHRINE 8 MG/250ML KIT 250 ML IV ONE (03:28)
[2020-12-23 04:49] LABS: Calcium 7.3 mg/dL (8.5-10.1); Potassium 4.2 mmol/L (3.5-5.1)
[2020-12-23 04:52] LABS: BUN/Creatinine Ratio 15.5
[2020-12-23] MEDS: NOREPINEPHRINE BITARTRATE 16 MG in SODIUM CHL 0.9% 234 ML IV SCH ×4 (05:00→18:52)
[2020-12-23] MEDS: MAGNESIUM OXIDE 400 MG TAB GT SCH ×2 (08:16→20:16)
[2020-12-23] MEDS: ENOXAPARIN SOD 40 MG/0.4 ML SYRINGE SC SCH (08:16)
[2020-12-23] MEDS: SODIUM CHLORIDE 0.9% 1,000 ML IV SCH ×2 (08:16→20:16)
[2020-12-23] MEDS: AMIODARONE HCL 200 MG TAB PO SCH ×2 (08:16→20:16)
[2020-12-23] MEDS: PANTOPRAZOLE 40 MG/10 ML VIAL INJ IV SCH (08:16)
[2020-12-23] MEDS: MIDAZOLAM DRIP 50 mg/50mL 50 ML IV SCH ×3 (08:23→18:51)
[2020-12-23] MEDS: cefTRIAXone 1GM/50ML D5W 50 ML IV SCH (12:48)
[2020-12-23] MEDS: PHENYLEPHRINE IV 250 ML IV SCH (19:30)
[2020-12-23] MEDS: ACETAMINOPHEN 650 mg PER 20.3 mL UD GT PRN (20:17)
[2020-12-23] MEDS ORDERED: VASOPRESSIN 20 UNIT/ML ONE (21:14)
[2020-12-23] MEDS: VASOPRESSIN 50 UNITS in D5W 5% 247.5 ML IV SCH (21:15)
[2020-12-23] MEDS ORDERED: ALBUMIN 25% 250 ML IV ONE ×2 (21:15→21:45)
[2020-12-23] MEDS ORDERED: SODIUM CHLORIDE 0.9% 1,000 ML IV ONE (23:00)
[2020-12-23] MEDS ORDERED: SODIUM BICARBONATE 8.4 % INJ 50ML VIAL IV ONE ×2 (23:20→23:30)
[2020-12-23] MEDS ORDERED: SODIUM BICARBONATE 8.4% INJ 50ML SYRINGE ONE (23:20)
[2020-12-23] MEDS ORDERED: DEXTROSE 50% SYRINGE 50 ML IV ONE (23:45)
[2020-12-23 23:55] LABS: Red Cell Distribution Width 13.7 % (11.8-14.3)
[2020-12-23 23:57] LABS: Hematocrit 24.6 % (36.0-46.0); Hemoglobin 7.9 g/dL (12.2-16.2); Mean Corpuscular Hemoglobin 32.5 pg (28.0-32.0); Mean Corpuscular Hgb Conc. 32.2 g/dL (32.0-36.0); Mean Corpuscular Volume 100.8 fL (80.0-100.0); Platelet Count (auto) 171 10^3/uL (140-450); Red Blood Cells 2.44 10^6/uL (4.0-5.20); White Blood Cell 21.4 10^3/uL (4.4-10.8)
[2020-12-24] VITALS (105 sets, daily range): BP systolic 32–141; BP diastolic 16–111
[2020-12-24 00:10] LABS: INR 1.75 (0.9-1.15); Partial Thromboplastin Time 63.3 sec (23.0-31.2)
[2020-12-24 00:17] LABS: Albumin 2.6 g/dL (3.4-5.0); Calcium 6.9 mg/dL (8.5-10.1); Magnesium 3.8 mg/dL (1.6-2.6)
[2020-12-24 00:25] LABS: Bilirubin, Total 0.8 mg/dL (0.2-1.0)
[2020-12-24 00:30] LABS: Basophils % (manual) 0 (0.0-2.0); Blast Cells 0; Eosinophils % (manual) 0 (0-7); Lymphocytes % (manual) 0 (10.0-50.0); Myelocytes % 0; Potassium 6.2 mmol/L (3.5-5.1); Promyelocytes % 0; Reactive Lymphocytes 0
[2020-12-24] MEDS ORDERED: SODIUM BICARBONATE 50ML VIAL 150 ML in SOD CHL 0.45% 1,000 ML IV SCH (00:30)
[2020-12-24] MEDS ORDERED: EPINEPHrine HCL 250 ML IV ONE (01:08)
[2020-12-24 01:14] LABS: BUN/Creatinine Ratio 11.2; Calcium 6.9 mg/dL (8.5-10.1)
[2020-12-24] MEDS ORDERED: ALBUTEROL SULF 2.5 MG/0.5ML(0.5%) NEB SOLN ONE (01:14)
[2020-12-24] MEDS ORDERED: FUROSEMIDE 20 MG/2 ML VIAL IV ONE (01:15)
[2020-12-24] MEDS ORDERED: SODIUM ZIRCONIUM CYCL 10 GM PAK PO ONE (01:15)
[2020-12-24] MEDS ORDERED: DEXTROSE (50%) 50ML SYRG IV ONE (01:15)
[2020-12-24] MEDS ORDERED: ALBUTEROL SULF 2.5 MG/0.5ML(0.5%) NEB SOLN NEB ONE (01:15)
[2020-12-24] MEDS ORDERED: SODIUM BICARBONATE 8.4% INJ 50ML SYRINGE IV ONE (01:15)
[2020-12-24] MEDS ORDERED: CALCIUM GLUC 4.65meq/50ml D5AE 50 ML IV ONE (01:15)
[2020-12-24] MEDS: EPINEPHrine HCL 250 ML IV SCH ×2 (01:15→23:15)
[2020-12-24] MEDS ORDERED: InsuLIN REG 1unit/0.01ml Soln (100units/ml) IV ONE (01:15)
[2020-12-24 01:16] LABS: Potassium 6.1 mmol/L (3.5-5.1)
[2020-12-24] MEDS: ALBUTEROL SULF 2.5 MG/0.5ML(0.5%) NEB SOLN NEB SCH ×6 (02:00→22:00)
[2020-12-24] MEDS: IPRATROPIUM BROM 0.5 MG/2.5ML INH SOL NEB SCH ×6 (02:00→22:00)
[2020-12-24] MEDS ORDERED: SODIUM BICARBONATE 8.4 % INJ 50ML VIAL IV ONE (02:45)
[2020-12-24] MEDS: SODIUM BICARBONATE 50ML VIAL 150 ML in SOD CHL 0.45% 1,000 ML IV SCH ×2 (02:50→06:18)
[2020-12-24] MEDS: PHENYLEPHRINE IV 250 ML IV SCH ×3 (03:35→20:15)
[2020-12-24 03:50] LABS: Band Neutrophils % (manual) 5; Metamyelocytes % 1; Monocytes % (manual) 4 (0-12)
[2020-12-24] MEDS: SODIUM ZIRCONIUM CYCL 10 GM PAK GT SCH ×3 (07:15→21:07)
[2020-12-24] MEDS ORDERED: BUMETANIDE 2.5mg/10ml (0.25 mg/ml) INJ IV ONE (07:30)
[2020-12-24 08:12] LABS: Hemoglobin 7.8 g/dL (12.2-16.2); Mean Corpuscular Hemoglobin 32.3 pg (28.0-32.0); Red Blood Cells 2.42 10^6/uL (4.0-5.20)
[2020-12-24 08:16] LABS: Hematocrit 23.9 % (36.0-46.0); Mean Corpuscular Hgb Conc. 32.8 g/dL (32.0-36.0); Mean Corpuscular Volume 98.7 fL (80.0-100.0); Platelet Count (auto) 187 10^3/uL (140-450); Red Cell Distribution Width 13.1 % (11.8-14.3)
[2020-12-24 08:22] LABS: BUN/Creatinine Ratio 14.9; Potassium 4.5 mmol/L (3.5-5.1)
[2020-12-24 08:24] LABS: White Blood Cell 33.9 10^3/uL (4.4-10.8)
[2020-12-24 08:25] LABS: Basophils % (manual) 0 (0.0-2.0); Blast Cells 0; Eosinophils % (manual) 0 (0-7); Promyelocytes % 0; Reactive Lymphocytes 0
[2020-12-24] MEDS: PANTOPRAZOLE 40 MG/10 ML VIAL INJ IV SCH (09:26)
[2020-12-24] MEDS: SODIUM BICARBONATE 50ML VIAL 150 ML in D5W 5% 1,000 ML IV SCH ×3 (09:26→22:35)
[2020-12-24] MEDS: cefTRIAXone 1GM/50ML D5W 50 ML IV SCH (09:26)
[2020-12-24] MEDS: ENOXAPARIN SOD 40 MG/0.4 ML SYRINGE SC SCH (09:27)
[2020-12-24] MEDS: MAGNESIUM OXIDE 400 MG TAB GT SCH ×2 (09:27→21:07)
[2020-12-24] MEDS: AMIODARONE HCL 200 MG TAB PO SCH ×2 (09:27→22:00)
[2020-12-24 10:01] LABS: Band Neutrophils % (manual) 3; Lymphocytes % (manual) 2 (10.0-50.0); Metamyelocytes % 2; Monocytes % (manual) 3 (0-12); Myelocytes % 1
[2020-12-24] MEDS: fentaNYL Drip 2500mCg/250mlNS 250 ML IV SCH (13:00)
[2020-12-24] MEDS: MEROPENEM 500MG IVPB 50 ML IV SCH (17:38)
[2020-12-24] MEDS: LINEZOLID 600MG/300ML 300 ML IV SCH (18:00)
[2020-12-24] MEDS: VASOPRESSIN 50 UNITS in D5W 5% 247.5 ML IV SCH (20:26)
[2020-12-25] VITALS (105 sets, daily range): BP systolic 89–152; BP diastolic 47–114
[2020-12-25] MEDS: PHENYLEPHRINE IV 250 ML IV SCH (01:14)
[2020-12-25] MEDS: NOREPINEPHRINE BITARTRATE 16 MG in SODIUM CHL 0.9% 234 ML IV SCH ×2 (02:00→14:32)
[2020-12-25] MEDS: IPRATROPIUM BROM 0.5 MG/2.5ML INH SOL NEB SCH ×6 (02:00→21:53)
[2020-12-25] MEDS: ALBUTEROL SULF 2.5 MG/0.5ML(0.5%) NEB SOLN NEB SCH ×6 (02:00→21:53)
[2020-12-25] MEDS: SODIUM ZIRCONIUM CYCL 10 GM PAK GT SCH ×3 (04:30→19:54)
[2020-12-25] MEDS: MEROPENEM 500MG IVPB 50 ML IV SCH ×2 (04:30→15:52)
[2020-12-25 04:31] LABS: Anion Gap 11 (5-15); BUN/Creatinine Ratio 15.2; Blood Urea Nitrogen 40 mg/dL (7-18); Carbon Dioxide 29 mmol/L (21-32); Chloride 103 mmol/L (98-107); GFR African American 24 mL/min; GFR Non-African American 20 mL/min; Glucose 260 mg/dL (74-106); Potassium 4.3 mmol/L (3.5-5.1); Sodium 143 mmol/L (136-145)
[2020-12-25 05:01] LABS: Calcium < 5.0 mg/dL (8.5-10.1)
[2020-12-25] MEDS: LINEZOLID 600MG/300ML 300 ML IV SCH ×2 (06:11→17:39)
[2020-12-25] MEDS: SODIUM BICARBONATE 50ML VIAL 150 ML in D5W 5% 1,000 ML IV SCH ×2 (06:15→09:46)
[2020-12-25] MEDS: PHENYLEPHRINE INJ 40 MG in SODIUM CHL 0.9% 246 ML IV SCH ×2 (07:10→21:30)
[2020-12-25] MEDS: MAGNESIUM OXIDE 400 MG TAB GT SCH ×2 (09:45→19:53)
[2020-12-25] MEDS: ENOXAPARIN SOD 40 MG/0.4 ML SYRINGE SC SCH (09:45)
[2020-12-25] MEDS: PANTOPRAZOLE 40 MG/10 ML VIAL INJ IV SCH (09:45)
[2020-12-25] MEDS: AMIODARONE HCL 200 MG TAB PO SCH ×2 (09:45→19:53)
[2020-12-25] MEDS: MIDAZOLAM DRIP 50 mg/50mL 50 ML IV SCH (11:58)
[2020-12-25] MEDS: fentaNYL Drip 2500mCg/250mlNS 250 ML IV SCH (13:15)
[2020-12-25] MEDS ORDERED: BUMETANIDE 2.5mg/10ml (0.25 mg/ml) INJ IV ONE (14:30)
[2020-12-25] MEDS: ACETAMINOPHEN 650 mg PER 20.3 mL UD GT PRN (16:25)
[2020-12-25] MEDS: VASOPRESSIN 50 UNITS in D5W 5% 247.5 ML IV SCH (21:15)
[2020-12-26] VITALS (14 sets, daily range): BP systolic 34–112; BP diastolic 12–79
[2020-12-26] MEDS: EPINEPHrine HCL 250 ML IV SCH (00:56)
[2020-12-26] MEDS: IPRATROPIUM BROM 0.5 MG/2.5ML INH SOL NEB SCH ×3 (02:11→10:12)
[2020-12-26] MEDS: ALBUTEROL SULF 2.5 MG/0.5ML(0.5%) NEB SOLN NEB SCH ×3 (02:11→10:12)
[2020-12-26] MEDS ORDERED: PHENYLEPHRINE IV 250 ML IV ONE (03:44)
[2020-12-26] MEDS ORDERED: PHENYLEPHRINE HCL 10 MG/ML VL ONE (03:45)
[2020-12-26 05:01] LABS: BUN/Creatinine Ratio 14.6; Potassium 5.3 mmol/L (3.5-5.1)
[2020-12-26 05:03] LABS: Red Cell Distribution Width 13.8 % (11.8-14.3)
[2020-12-26 05:09] LABS: Hematocrit 22.1 % (36.0-46.0); Hemoglobin 7.4 g/dL (12.2-16.2); Mean Corpuscular Hemoglobin 33.2 pg (28.0-32.0); Mean Corpuscular Hgb Conc. 33.4 g/dL (32.0-36.0); Mean Corpuscular Volume 99.4 fL (80.0-100.0); Platelet Count (auto) 121 10^3/uL (140-450); Red Blood Cells 2.22 10^6/uL (4.0-5.20); White Blood Cell 24.4 10^3/uL (4.4-10.8)
[2020-12-26 05:20] LABS: Basophils % (manual) 0 (0.0-2.0); Blast Cells 0; Eosinophils % (manual) 0 (0-7); Promyelocytes % 0; Reactive Lymphocytes 0
[2020-12-26 05:27] LABS: Calcium 5.1 mg/dL (8.5-10.1)
[2020-12-26] MEDS: SODIUM ZIRCONIUM CYCL 10 GM PAK GT SCH (06:00)
[2020-12-26] MEDS: MEROPENEM 500MG IVPB 50 ML IV SCH (06:08)
[2020-12-26] MEDS: LINEZOLID 600MG/300ML 300 ML IV SCH (06:08)
[2020-12-26 06:25] LABS: Band Neutrophils % (manual) 12; Lymphocytes % (manual) 2 (10.0-50.0); Metamyelocytes % 1; Monocytes % (manual) 2 (0-12); Myelocytes % 1
[2020-12-26] MEDS: PHENYLEPHRINE INJ 40 MG in SODIUM CHL 0.9% 246 ML IV SCH (08:33)
[2020-12-26] MEDS: PANTOPRAZOLE 40 MG/10 ML VIAL INJ IV SCH (09:31)
[2020-12-26] MEDS: ENOXAPARIN SOD 40 MG/0.4 ML SYRINGE SC SCH (09:31)
[2020-12-26] MEDS: MAGNESIUM OXIDE 400 MG TAB GT SCH (09:31)
[2020-12-26] MEDS: AMIODARONE HCL 200 MG TAB PO SCH (09:31)
== END 2020-12-26 14:55 | DRG 853 ==
LOC: EDBD 14:55 → ER 14:59 → TELE 15:00 → ICU WEST 12-09 10:06 → TELE-EAST 12-17 21:15 → ICU WEST 12-20 12:29
PROVIDERS: ADMIT Nurse Practitioner; ATTEND Internal Medicine
PROC: 5A12012 Performance of Cardiac Output, Single, Manual (ICD-10-PCS; 2020-12-08)
PROC: 06HM33Z Insertion of Infusion Device into Right Femoral Vein, Percutaneous Approach (ICD-10-PCS; 2020-12-09)
PROC: 5A1955Z Respiratory Ventilation, Greater than 96 Consecutive Hours (ICD-10-PCS; 2020-12-09)
PROC: 0BH17EZ Insertion of Endotracheal Airway into Trachea, Via Natural or Artificial Opening (ICD-10-PCS; 2020-12-09)
PROC: 5A09357 Assistance with Respiratory Ventilation, Less than 24 Consecutive Hours, Continuous Positive Airway Pressure (ICD-10-PCS; 2020-12-09)
PROC: 4A023N7 Measurement of Cardiac Sampling and Pressure, Left Heart, Percutaneous Approach (ICD-10-PCS; 2020-12-11)
PROC: B211YZZ Fluoroscopy of Multiple Coronary Arteries using Other Contrast (ICD-10-PCS; 2020-12-11)
PROC: B215YZZ Fluoroscopy of Left Heart using Other Contrast (ICD-10-PCS; 2020-12-11)
PROC: 5A12012 Performance of Cardiac Output, Single, Manual (ICD-10-PCS; 2020-12-12)
PROC: 0JH608Z Insertion of Defibrillator Generator into Chest Subcutaneous Tissue and Fascia, Open Approach (ICD-10-PCS; principal; 2020-12-13)
PROC: 02H63KZ Insertion of Defibrillator Lead into Right Atrium, Percutaneous Approach (ICD-10-PCS; 2020-12-13)
PROC: 02HK3KZ Insertion of Defibrillator Lead into Right Ventricle, Percutaneous Approach (ICD-10-PCS; 2020-12-13)
PROC: 5A1955Z Respiratory Ventilation, Greater than 96 Consecutive Hours (ICD-10-PCS; 2020-12-20)
PROC: 0BH17EZ Insertion of Endotracheal Airway into Trachea, Via Natural or Artificial Opening (ICD-10-PCS; 2020-12-20)
PROC: 5A09357 Assistance with Respiratory Ventilation, Less than 24 Consecutive Hours, Continuous Positive Airway Pressure (ICD-10-PCS; 2020-12-20)
PROC: 02HV33Z Insertion of Infusion Device into Superior Vena Cava, Percutaneous Approach (ICD-10-PCS; 2020-12-21)
PROC: B548ZZA Ultrasonography of Superior Vena Cava, Guidance (ICD-10-PCS; 2020-12-21)
DX: A41.9 Sepsis, unspecified organism (principal); G93.41 Metabolic encephalopathy; I50.23 Acute on chronic systolic (congestive) heart failure; R65.21 Severe sepsis with septic shock; J96.01 Acute respiratory failure with hypoxia; J18.9 Pneumonia, unspecified organism; I21.A1 Myocardial infarction type 2; E44.0 Moderate protein-calorie malnutrition; I47.2 Ventricular tachycardia; J44.0 Chronic obstructive pulmonary disease with (acute) lower respiratory infection; N17.9 Acute kidney failure, unspecified; E87.4 Mixed disorder of acid-base balance; D68.59 Other primary thrombophilia; I42.0 Dilated cardiomyopathy; D64.9 Anemia, unspecified; E87.5 Hyperkalemia; E87.6 Hypokalemia; F12.10 Cannabis abuse, uncomplicated; F17.200 Nicotine dependence, unspecified, uncomplicated; G89.29 Other chronic pain; Z20.822 Contact with and (suspected) exposure to COVID-19; F32.9 Major depressive disorder, single episode, unspecified; Z66 Do not resuscitate; F41.9 Anxiety disorder, unspecified; G40.909 Epilepsy, unspecified, not intractable, without status epilepticus; I46.9 Cardiac arrest, cause unspecified; I48.91 Unspecified atrial fibrillation; I49.01 Ventricular fibrillation; I25.2 Old myocardial infarction; Z68.29 Body mass index [BMI] 29.0-29.9, adult; Z88.5 Allergy status to narcotic agent; Z82.0 Family history of epilepsy and other diseases of the nervous system; Z68.26 Body mass index [BMI] 26.0-26.9, adult; Z90.49 Acquired absence of other specified parts of digestive tract
CPT/HCPCS: 31500; 36415; 36600; 51702; 70450; 71045; 71275; 80048; 80053; 80202; 80307; 81001; 82565; 82570; 82728; 82805; 82962; 83036; 83605; 83615; 83735; 83880; 84132; 84300; 84443; 84484; 85007; 85025; 85027; 85379; 85610; 85652; 85730; 86141; 87040; 87070; 87077; 87081; 87086; 87088; 87186; 87205; 87426; 87493; 92610; 92950; 93005; 93306; 93886; 94002; 94003; 94640; 94660; 95819; 96365; 96366; 96367; 96368; 96372; 96375; 96376; 99152; 99153; C9113; G0378; J0171; J0330; J0610; J0696; J2185; J2250; J2405; J2543; J2704; J3480; J7060; P9047; Q9967